=== PATIENT | male | born 1965 | race Caucasian/White ===

== ENCOUNTER 2017-03-25 16:41 | Emergency (ER) | payer SELFPAY ==
[~2017-03-25] VITALS: Ht 172.7 cm; Wt 68.0 kg
[~2017-03-25 16:41] MED LIST: MOTRIN800 MG PO; NATURE'S BLEND F1 MG PO; PHENERGAN25 M1 PO; THIAMINE-100100 MG PO; VIBRAMYCIN100 MG PO; VITAMIN B-1250 MCG PO; ZOFRAN ODT4 MG SL
[2017-03-25 17:07] LABS: BASO # 0.1 10*3/uL (0.0-0.1); BASO % 0.6 % (0.0-1.0); EOS # 0.1 10*3/uL (0.0-0.4); EOS % 1.8 % (1.0-4.0); HEMOGLOBIN 15.2 g/dl (14.0-18.0); LYMPH # 3.8 10*3/uL (1.3-4.4); MEAN CELL VOLUME 90.3 fl (80.0-94.0); MEAN CORPUSCULAR HGB 32.7 pg (27.0-31.0); MEAN CORPUSCULAR HGB CONC 36.2 g/dl (33.0-37.0); MONO # 0.5 10*3/uL (0.1-1.0); MONO % 6.2 % (3.0-9.0); NEUT # 3.4 10*3/uL (2.3-7.9); NEUT % 43.1 % (47.0-73.0); PLATELET COUNT AUTOMATED 215 10*3/uL (130-400); RED BLOOD COUNT 4.65 10*6/uL (4.50-5.90); RED CELL DISTRI WIDTH 12.8 % (0-14.5); WHITE BLOOD COUNT 7.9 10*3/uL (4.8-10.8)
[2017-03-25 17:27] LABS: BUN 9 mg/dl (7-24); CARBON DIOXIDE 25 mmol/L (21-32); CHLORIDE 103 mmol/L (98-107); EST GLOM FILT AFRICAN AMERICAN > 60 ml/min; GLUCOSE 105 mg/dL (65-99); POTASSIUM 3.8 mmol/L (3.5-5.1); SODIUM 140 mmol/L (136-145)
[2017-03-25 17:52] LABS: URINE AMPHETAMINES < 1000 (1000ng/ml); URINE BARBITURATES < 200 (200ng/ml); URINE COCAINE > 300 (300ng/ml)
== END 2017-03-25 18:14 | disposition short-term general hospital (02) ==
LOC: ED 16:41
PROVIDERS: Emergency Medicine
DX: R41.82 Altered mental status, unspecified (principal); F14.10 Cocaine abuse, uncomplicated

== ENCOUNTER 2017-09-30 03:32 | Emergency (ER) | payer OTHER ==
[~2017-09-30] VITALS: Ht 180.3 cm; Wt 62.1 kg
[2017-09-30] MEDS ORDERED: ULTRAM50 MG PO (07:01)
== END 2017-09-30 06:43 | disposition home or self-care (01) ==
LOC: ED 03:32
DX: S02.40DA Maxillary fracture, left side, initial encounter for closed fracture (principal); Y04.0XXA Assault by unarmed brawl or fight, initial encounter; Y93.89 Activity, other specified; Y92.89 Other specified places as the place of occurrence of the external cause; Y99.8 Other external cause status

== ENCOUNTER 2020-07-29 15:33 | Inpatient (IN) | payer OTHER ==
[~2020-07-29] VITALS: Ht 182.9 cm; Wt 77.1 kg
[~2020-07-29 15:33] MED LIST changes: +CEFADROXIL500 M1 PO; +ULTRAM50 MG PO
[2020-07-29 15:39] VITALS: BP 91/59
--- NOTE | 2020-07-29 16:00 | NUR ---
PT WITHDRAWN AT THIS TIME. UNRESPONSIVE TO PAINFUL STIMULI. WILL CONTINUE TO MONITOR.
[2020-07-29 16:07] VITALS: BP 114/77
[2020-07-29 16:09] LABS: BASO # 0.1 10*3/uL (0.0-0.1); BASO % 0.6 % (0.0-1.0); EOS # 0.3 10*3/uL (0.0-0.4); EOS % 3.7 % (1.0-4.0); HEMATOCRIT 45.4 % (42.0-52.0); LYMPH # 4.4 10*3/uL (1.3-4.4); LYMPH % 46.9 % (27.0-41.0); MEAN CELL VOLUME 91.7 fl (80.0-94.0); MEAN CORPUSCULAR HGB 32.1 pg (27.0-31.0); MEAN PLATELET VOLUME 9.1 fl (9.6-12.3); MONO # 0.8 10*3/uL (0.1-1.0); MONO % 8.2 % (3.0-9.0); NEUT # 3.7 10*3/uL (2.3-7.9); NEUT % 40.3 % (47.0-73.0); PLATELET COUNT AUTOMATED 219 10*3/uL (130-400); RED BLOOD COUNT 4.95 10*6/uL (4.50-5.90); RED CELL DISTRI WIDTH 12.6 % (0-14.5); WHITE BLOOD COUNT 9.3 10*3/uL (4.8-10.8)
--- NOTE | 2020-07-29 16:15 | NUR ---
PT PULLING AT SOFT RESTRAINTS. YELLING AT STAFF. WILL CONTINUE TO MONITOR.
[2020-07-29 16:20] LABS: BILIRUBIN Negative (Negative); BLOOD Trace-Lysed (Negative); CLARITY Clear (Clear); COLOR Yellow (Yellow); GLUCOSE Negative (Negative); KETONE Negative (Negative); LEUKO ESTERASE Negative (Negative); NITRITE Negative (Negative); SPECIFIC GRAVITY <= 1.005 (1.001-1.030); UROBILINOGEN 0.2 E.U./dl (0.0-1.0)
--- NOTE | 2020-07-29 16:30 | NUR ---
SECURITY AND VEGETABLE II FARMWORKER AT BEDSIDE. PT REQUESTING TO LEAVE AT THIS TIME. WILL CONTINUE TO MONITOR.
--- NOTE | 2020-07-29 16:34 | NUR ---
PT HAS $150 IN SHIRT POCKET. MONEY COUNTED AND VERIFIED WITH STEFANIE GARCIA RN. THIS RN TAKING MONEY TO NURSE AUTOMATIC PATTERN EDGER TO BE PUT IN LOCK BOX UNTIL DISCHARGE OF PT.
[2020-07-29 16:41] LABS: URINE AMPHETAMINES < 1000 (1000ng/ml); URINE BARBITURATES < 200 (200ng/ml); URINE BENZODIAZEPINES < 200 (200ng/ml); URINE CANNABINOIDS (THC) < 50 (50ng/ml); URINE COCAINE < 300 (300ng/ml); URINE METHADONE < 300 (300ng/ml); URINE OPIATES < 300 (300ng/ml); URINE PHENCYCLIDINE < 25 (25ng/ml)
[2020-07-29 16:43] LABS: WBC 0-2 wbc/hpf (0-5)
--- NOTE | 2020-07-29 16:45 | NUR ---
PT COMBATIVE AT THIS TIME. SWINGING AT STAFF. SOFT RESTRAINTS APPLIED PER MD REQUEST. WILL CONTINUE TO MONITOR.
--- NOTE | 2020-07-29 16:45 | NUR ---
PT DAUGHTER AT BEDSIDE. PT AGGITATED. REQUESTING TO LEAVE. WILL CONTINUE TO MONITOR.
--- NOTE | 2020-07-29 16:52 | NUR ---
MONEY TAKEN TO NURSING SUPERVISORS OFFICE AND PUT IN LOCKER NUMBER 16.
[2020-07-29 16:55] LABS: ALBUMIN 3.9 gm/dl (3.1-4.5); ALKALINE PHOSPHATASE 90 U/L (45-117); BUN 13 mg/dl (7-24); CHLORIDE 107 mmol/L (98-107); CREATININE 1.07 mg/dL (0.70-1.30); POTASSIUM 3.5 mmol/L (3.5-5.1); SGOT/AST 29 IU/L (3-35); SGPT/ALT 31 U/L (12-78); SODIUM 139 mmol/L (136-145); TOTAL PROTEIN 7.3 gm/dL (6.4-8.2)
--- NOTE | 2020-07-29 17:00 | NUR ---
PT DAUGHTER TO NURSES STATION. REQUESTING INFORMATION. INFORMED THAT PT MONEY IN THE LOCKER. PT ON COT. BEDRAILS X2. WILL CONTINUE TO MONITOR.
[2020-07-29 17:02] LABS: TROPONIN I < 0.015 ng/ml (<0.045)
--- NOTE | 2020-07-29 17:15 | NUR ---
PT TALKING CALMLY WITH SECURITY AND JOSR CALENDER FEEDER AT THIS TIME. CT CONTACTED. SAFETY PRECAUTIONS INTACT. WILL CONTINUE TO MONITOR.
--- NOTE | 2020-07-29 17:30 | NUR ---
PT ON COT WITH PUBLIC SPACE ATTENDANT AND SECURITY AT BEDSIDE. PT CALM. BEDRAIL X 2. WILL CONTINUE TO MONITOR.
--- NOTE | 2020-07-29 17:45 | NUR ---
PT UNRESPONSIVE. VSS. SECURITY AND TELLER COORDINATOR STILL AT BEDSIDE.
--- NOTE | 2020-07-29 18:00 | NUR ---
PT YELLING AND COMBATIVE. VSS. WILL CONTINUE TO MONITOR.
--- NOTE | 2020-07-29 18:15 | NUR ---
PT SITTING ON COT CALMLY. PRESCHOOL TEACHER AIDE AND SECURITY STILL AT BEDSIDE. WILL CONTINUE TO MONITOR.
--- NOTE | 2020-07-29 18:30 | NUR ---
PT TO CT SCAN.
[2020-07-29 18:41] VITALS: BP 97/67
--- NOTE | 2020-07-29 18:45 | NUR ---
PT SLEEPING ON COT. O2 SAT DROPPING TO HIGH 80S. NASAL CANULA WITH 2 LITERS OF O2 APPLIED. SAFETY PRECAUTIONS INTACT. SURGICAL ENDOSCOPIST AT BEDSIDE. WILL CONTINUE TO MONITOR.
--- NOTE | 2020-07-29 19:00 | NUR ---
PT SNORING ON COT. VSS. SAFETY PRECAUTION INTACT. WILL CONTINUE TO MONITOR.
--- NOTE | 2020-07-29 19:06 | NUR ---
NURSE TO NURSE REPORT GIVEN TO THIS RN.
[2020-07-29 19:36] VITALS: BP 103/64
--- NOTE | 2020-07-29 20:21 | NUR ---
THIS RN SPOKE WITH PT SIGNIFICANT OTHER AND PROVIDE UPDATE ON PT ADMISSION.
[2020-07-29 21:03] VITALS: BP 104/62
--- NOTE | 2020-07-29 21:10 | NUR ---
PT SIGNIFICANT OTHER PROVIDED WITH PT KEYS, REMAINING BELONGINGS S[facility] TO [facility], CLOTHING,SHOES,WALLET,AND CELL PHONE.
[2020-07-29 21:20] VITALS: BP 128/57
--- NOTE | 2020-07-29 21:20 | NUR ---
PATIENT UNCOOPERTIVE WITH SOON HE CAME TO THE FLOOR I ASKED IF HE COULD ROLL ON HIS BACK HE LAUIGHED SAID NO AND WENT BACK TO SLEEP.
--- NOTE | 2020-07-29 21:20 | NUR ---
A 55, admitted to [facility], under the services of WENDY Bedoya DO with a diagnosis of ETOH ABUSE SYNCOPE. Chief complaint is INTOXICATED AND FELL. Patient arrived via stretcher from ER. Monitor applied. Initial assessment completed. Vital signs taken and recorded. WENDY BEDOYA DO notified of admission to the unit. Orders received. See assessment for past medical history, medications and allergies. Patient and/or family oriented to unit. [facility] visitation policy reviewed. Clothing/patient valuable form completed. PRASANNA CABELLO
--- NOTE | 2020-07-29 21:22 | NUR ---
PT SIGNIFICANT OTHER "HERMINIO", PROVIDED PASSWORD OF "[employer]".
--- NOTE | 2020-07-29 21:28 | NUR ---
THIS RN SPOKE WITH INFORMATION TECHNOLOGY TECHNICIAN HAMLET, WHO CONFIRMS SHE WAS PROVIDED $150 [place] THAT WAS FOUND IN PT BELONGINGS BY RN ARELIS PEREZ.SHE ALSO STATES MONEY WAS PLACED IN LOCKBOX#[address] COPY OF LOCKBOX PAPERWORK TO [facility].
--- NOTE | 2020-07-29 23:50 | NUR ---
PATIENT CURRENTLY SLEEPING AT THIS TIME.
[2020-07-30] VITALS: BP 119/55
--- NOTE | 2020-07-30 01:05 | NUR ---
PATIENT WOKE UP DEMANDING TO LEAVE.CALLED DOCTOR JESSICA WHO CAME TO THE FLOOR AND TAKED TO THE PATIENT.
--- NOTE | 2020-07-30 01:38 | NUR ---
PATIENT LEAVING AMA PATIENT IS ALERT AND ORIENTED AND WANTED TO GO HOME. TRAN OUT AND IV OUT PATIENT IS DRESSED ADN BELONGINGS ALL RETURNED. DOCTORS ARE AWARE.
--- NOTE | 2020-07-30 01:50 | NUR ---
PATIENT TAKEN TO TEDDY HOOKER ON [facility] WHO SAID THEY WOULD BE HERE IN 30 MINS TO TAKE PATINET TO [address] [place] [address]. SECURITY WAS NOTIFIED TO MAKE SURE PATIENT GOT IN TO CAB. PATIENT WAS LEFT WITH REGIONAL INTERMODAL TRUCK DRIVER PAULINE UNTIL CAB ARRIVES.
== END 2020-07-30 01:50 | disposition left against medical advice (07) | DRG 312 ==
LOC: ED 15:33 → ICCU 20:18 → EDHOLD 20:18 → ICCU 20:37
PROVIDERS: Nurse Practitioner Family; ADMIT Emergency Medicine; ATTEND Emergency Medicine
DX: R55 Syncope and collapse (principal); I95.9 Hypotension, unspecified; R45.1 Restlessness and agitation; W19.XXXA Unspecified fall, initial encounter; F10.20 Alcohol dependence, uncomplicated; Z53.29 Procedure and treatment not carried out because of patient's decision for other reasons; Z88.5 Allergy status to narcotic agent; Z88.6 Allergy status to analgesic agent; Y93.89 Activity, other specified; Y92.89 Other specified places as the place of occurrence of the external cause; Y99.8 Other external cause status

== ENCOUNTER 2021-02-07 23:39 | Emergency (ER) | payer OTHER ==
[~2021-02-07] VITALS: Ht 180.3 cm; Wt 85.9 kg
[2021-02-07 23:58] LABS: BASO # 0.1 10*3/uL (0.0-0.1); BASO % 0.7 % (0.0-1.0); EOS # 0.4 10*3/uL (0.0-0.4); EOS % 5.3 % (1.0-4.0); HEMATOCRIT 44.9 % (42.0-52.0); LYMPH # 2.8 10*3/uL (1.3-4.4); LYMPH % 39.5 % (27.0-41.0); MEAN CELL VOLUME 92.4 fl (80.0-94.0); MEAN CORPUSCULAR HGB 32.7 pg (27.0-31.0); MEAN CORPUSCULAR HGB CONC 35.4 g/dl (33.0-37.0); MONO # 0.7 10*3/uL (0.1-1.0); MONO % 9.4 % (3.0-9.0); NEUT # 3.1 10*3/uL (2.3-7.9); NEUT % 44.8 % (47.0-73.0); PLATELET COUNT AUTOMATED 234 10*3/uL (130-400); RED BLOOD COUNT 4.86 10*6/uL (4.50-5.90)
[2021-02-08 00:16] LABS: ALBUMIN 3.4 gm/dl (3.1-4.5); ALKALINE PHOSPHATASE 112 U/L (45-117); BUN 9 mg/dl (7-24); CHLORIDE 107 mmol/L (98-107); CREATININE 1.17 mg/dL (0.70-1.30); POTASSIUM 3.4 mmol/L (3.5-5.1); SGOT/AST 23 IU/L (3-35); SGPT/ALT 26 U/L (12-78); SODIUM 141 mmol/L (136-145)
[2021-02-08 00:21] LABS: TROPONIN I < 0.015 ng/ml (<0.045)
== END 2021-02-08 02:12 | disposition home or self-care (01) ==
LOC: ED 23:39
PROVIDERS: Internal Medicine
DX: T59.91XA Toxic effect of unspecified gases, fumes and vapors, accidental (unintentional), initial encounter (principal); Y92.89 Other specified places as the place of occurrence of the external cause; Z88.6 Allergy status to analgesic agent; Z90.49 Acquired absence of other specified parts of digestive tract; Z98.890 Other specified postprocedural states

== ENCOUNTER 2021-05-30 14:41 | Emergency (ER) | payer OTHER ==
[~2021-05-30] VITALS: Ht 180.3 cm; Wt 78.9 kg
[2021-05-30 16:21] LABS: BASO % 0.6 % (0.0-1.0); EOS # 0.2 10*3/uL (0.0-0.4); EOS % 3.6 % (1.0-4.0); HEMATOCRIT 42.1 % (42.0-52.0); LYMPH # 2.4 10*3/uL (1.3-4.4); LYMPH % 36.1 % (27.0-41.0); MEAN CELL VOLUME 93.1 fl (80.0-94.0); MEAN CORPUSCULAR HGB 33.4 pg (27.0-31.0); MEAN CORPUSCULAR HGB CONC 35.9 g/dl (33.0-37.0); MEAN PLATELET VOLUME 8.9 fl (9.6-12.3); MONO # 0.6 10*3/uL (0.1-1.0); MONO % 8.8 % (3.0-9.0); NEUT # 3.4 10*3/uL (2.3-7.9); NEUT % 50.8 % (47.0-73.0); PLATELET COUNT AUTOMATED 191 10*3/uL (130-400); RED BLOOD COUNT 4.52 10*6/uL (4.50-5.90); RED CELL DISTRI WIDTH 13.1 % (0-14.5); WHITE BLOOD COUNT 6.7 10*3/uL (4.8-10.8)
[2021-05-30 16:35] LABS: ALKALINE PHOSPHATASE 94 U/L (45-117); BUN 10 mg/dl (7-24); CHLORIDE 106 mmol/L (98-107); CREATININE 1.18 mg/dL (0.70-1.30); LIPASE 139 U/L (73-393); POTASSIUM 3.6 mmol/L (3.5-5.1); SGOT/AST 25 IU/L (3-35); SGPT/ALT 27 U/L (12-78); SODIUM 138 mmol/L (136-145); TOTAL PROTEIN 6.5 gm/dL (6.4-8.2)
== END 2021-05-30 20:37 | disposition home or self-care (01) ==
LOC: ED 14:41
PROVIDERS: Family Medicine
DX: R11.2 Nausea with vomiting, unspecified (principal); Z20.822 Contact with and (suspected) exposure to COVID-19; R10.9 Unspecified abdominal pain; Z88.6 Allergy status to analgesic agent

== ENCOUNTER 2021-11-24 22:58 | Emergency (ER) | payer SELFPAY ==
[~2021-11-24] VITALS: Wt 80.0 kg
[2021-11-24 23:15] LABS: BILIRUBIN Negative (Negative); BLOOD Negative (Negative); CLARITY Clear (Clear); COLOR Yellow (Yellow); GLUCOSE Negative (Negative); KETONE Negative (Negative); LEUKO ESTERASE Negative (Negative); NITRITE Negative (Negative); PH 5.5 (4.5-8.0); UROBILINOGEN 0.2 E.U./dl (0.0-1.0)
[2021-11-24 23:23] LABS: URINE AMPHETAMINES < 1000 (1000ng/ml); URINE BARBITURATES < 200 (200ng/ml); URINE BENZODIAZEPINES < 200 (200ng/ml); URINE CANNABINOIDS (THC) < 50 (50ng/ml); URINE COCAINE < 300 (300ng/ml); URINE METHADONE < 300 (300ng/ml); URINE OPIATES < 300 (300ng/ml)
[2021-11-24 23:24] LABS: URINE PHENCYCLIDINE < 25 (25ng/ml)
[2021-11-24 23:51] LABS: BASO % 0.4 % (0.0-1.0); EOS # 0.4 10*3/uL (0.0-0.4); EOS % 6.7 % (1.0-4.0); HEMATOCRIT 40.8 % (42.0-52.0); LYMPH # 2.5 10*3/uL (1.3-4.4); LYMPH % 48.5 % (27.0-41.0); MEAN CELL VOLUME 93.8 fl (80.0-94.0); MEAN CORPUSCULAR HGB 33.6 pg (27.0-31.0); MEAN CORPUSCULAR HGB CONC 35.8 g/dl (33.0-37.0); MEAN PLATELET VOLUME 8.7 fl (9.6-12.3); MONO # 0.4 10*3/uL (0.1-1.0); MONO % 8.2 % (3.0-9.0); NEUT # 1.9 10*3/uL (2.3-7.9); NEUT % 35.8 % (47.0-73.0); PLATELET COUNT AUTOMATED 168 10*3/uL (130-400); RED BLOOD COUNT 4.35 10*6/uL (4.50-5.90); RED CELL DISTRI WIDTH 13.7 % (0-14.5); WHITE BLOOD COUNT 5.2 10*3/uL (4.8-10.8)
[2021-11-24 23:57] LABS: BACTERIA TRACE; EPITHELIAL CELLS 0-2; RBC 0-2 rbc/hpf (0-2)
[2021-11-25 00:02] LABS: INTERNATIONAL NORM RATIO 1.1 (2.0-3.5)
[2021-11-25 00:12] LABS: ALKALINE PHOSPHATASE 95 U/L (45-117); BUN 9 mg/dl (7-24); CHLORIDE 115 mmol/L (98-107); CREATININE 0.89 mg/dL (0.70-1.30); POTASSIUM 2.9 mmol/L (3.5-5.1); SGOT/AST 28 IU/L (3-35); SGPT/ALT 27 U/L (12-78); SODIUM 146 mmol/L (136-145); TOTAL PROTEIN 6.6 gm/dL (6.4-8.2)
== END 2021-11-25 01:04 | disposition short-term general hospital (02) ==
LOC: ED 22:58
PROVIDERS: Emergency Medicine
DX: S09.90XA Unspecified injury of head, initial encounter (principal); I63.9 Cerebral infarction, unspecified; Z88.6 Allergy status to analgesic agent; Z90.49 Acquired absence of other specified parts of digestive tract; W17.89XA Other fall from one level to another, initial encounter; Y93.89 Activity, other specified; Y92.89 Other specified places as the place of occurrence of the external cause; Y99.8 Other external cause status

== ENCOUNTER 2022-11-24 13:18 | Emergency (ER) | payer OTHER ==
[2022-11-24 13:59] LABS: BASO # 0.1 10*3/uL (0.0-0.1); BASO % 0.9 % (0.0-1.0); EOS # 0.6 10*3/uL (0.0-0.4); EOS % 9.1 % (1.0-4.0); HEMATOCRIT 44.6 % (42.0-52.0); LYMPH # 2.1 10*3/uL (1.3-4.4); LYMPH % 33.2 % (27.0-41.0); MEAN CELL VOLUME 94.3 fl (80.0-94.0); MEAN CORPUSCULAR HGB 33.2 pg (27.0-31.0); MEAN CORPUSCULAR HGB CONC 35.2 g/dl (33.0-37.0); MEAN PLATELET VOLUME 8.7 fl (9.6-12.3); MONO # 0.6 10*3/uL (0.1-1.0); NEUT % 46.5 % (47.0-73.0); PLATELET COUNT AUTOMATED 181 10*3/uL (130-400); RED BLOOD COUNT 4.73 10*6/uL (4.50-5.90); RED CELL DISTRI WIDTH 13.2 % (0-14.5); WHITE BLOOD COUNT 6.4 10*3/uL (4.8-10.8)
[2022-11-24 14:16] LABS: ALKALINE PHOSPHATASE 90 U/L (46-116); BUN 8 mg/dl (9-23); CHLORIDE 104 mmol/L (98-107); POTASSIUM 3.9 mmol/L (3.4-5.1); SGPT/ALT 42 U/L (10-49); TOTAL PROTEIN 6.8 gm/dL (6.0-8.0)
[2022-11-24 14:29] LABS: BILIRUBIN Negative (Negative); BLOOD Negative (Negative); CLARITY Clear (Clear); COLOR Yellow (Yellow); GLUCOSE Negative (Negative); KETONE Negative (Negative); LEUKO ESTERASE Negative (Negative); NITRITE Negative (Negative); UROBILINOGEN 0.2 E.U./dl (0.0-1.0)
[2022-11-24 14:39] LABS: BACTERIA TRACE; EPITHELIAL CELLS 0-2; MUCOUS 1+; WBC 0-2 wbc/hpf (0-5)
== END 2022-11-24 18:44 | disposition home or self-care (01) ==
LOC: ED 13:18
PROVIDERS: Internal Medicine
DX: K40.20 Bilateral inguinal hernia, without obstruction or gangrene, not specified as recurrent (principal); R10.9 Unspecified abdominal pain; F10.10 Alcohol abuse, uncomplicated; F32.A Depression, unspecified; I10 Essential (primary) hypertension; K46.9 Unspecified abdominal hernia without obstruction or gangrene; Z88.8 Allergy status to other drugs, medicaments and biological substances; Z90.49 Acquired absence of other specified parts of digestive tract

== ENCOUNTER 2023-12-12 13:42 | Emergency (ER) | payer OTHER ==
[~2023-12-12] VITALS: Ht 180.3 cm; Wt 77.1 kg
[2023-12-12] MEDS ORDERED: Ketorolac Tromethamine 30 MG/ML VIAL IM ONE (14:40)
[2023-12-12] MEDS ORDERED: SILVER SULFADIAZINE 25 GM TUBE T ONE (14:40)
[2023-12-12] MEDS ORDERED: SILVADENE20 GM T (15:11)
[2023-12-12] MEDS ORDERED: NAPROSYN500 MG PO (15:11)
== END 2023-12-12 15:50 | disposition home or self-care (01) ==
LOC: ED 13:42
DX: T23.151A Burn of first degree of right palm, initial encounter (principal); T31.0 Burns involving less than 10% of body surface; F32.A Depression, unspecified; I10 Essential (primary) hypertension; F10.10 Alcohol abuse, uncomplicated; Z88.6 Allergy status to analgesic agent; Z88.8 Allergy status to other drugs, medicaments and biological substances; Z90.49 Acquired absence of other specified parts of digestive tract; Z98.890 Other specified postprocedural states; X08.8XXA Exposure to other specified smoke, fire and flames, initial encounter; Y93.89 Activity, other specified; Y92.89 Other specified places as the place of occurrence of the external cause; Y99.0 Civilian activity done for income or pay

== ENCOUNTER 2023-12-17 11:47 | Emergency (ER) | payer OTHER ==
[~2023-12-17] VITALS: Ht 180.3 cm; Wt 77.1 kg
[~2023-12-17 11:47] MED LIST changes: +NAPROSYN500 MG PO; +SILVADENE20 GM T
[2023-12-17] MEDS ORDERED: Ondansetron Hydrochloride 4 MG TAB SL ONE (12:15)
[2023-12-17] MEDS ORDERED: Ketorolac Tromethamine 60 MG/2 ML VIAL IM ONE (12:20)
[2023-12-17] MEDS ORDERED: Motrin,Rufen800 MG PO (14:07)
== END 2023-12-17 14:11 | disposition home or self-care (01) ==
LOC: ED 11:47
DX: S90.32XA Contusion of left foot, initial encounter (principal); I10 Essential (primary) hypertension; F32.A Depression, unspecified; Z88.6 Allergy status to analgesic agent; Z88.8 Allergy status to other drugs, medicaments and biological substances; Z90.49 Acquired absence of other specified parts of digestive tract; Z98.890 Other specified postprocedural states; F10.10 Alcohol abuse, uncomplicated; W22.8XXA Striking against or struck by other objects, initial encounter; Y93.89 Activity, other specified; Y92.89 Other specified places as the place of occurrence of the external cause; Y99.0 Civilian activity done for income or pay

== ENCOUNTER 2025-08-09 18:53 | Emergency (ER) | payer OTHER ==
[~2025-08-09] VITALS: Ht 180.3 cm; Wt 77.1 kg
[~2025-08-09 18:53] MED LIST changes: +Motrin,Rufen800 MG PO
[2025-08-09] MEDS ORDERED: Bacitracin Zinc 14 GM TUBE T ONE (19:25)
[2025-08-09] MEDS ORDERED: VIBRAMYCIN100 MG PO (19:25)
== END 2025-08-09 19:58 | disposition home or self-care (01) ==
LOC: ED 18:53
DX: S70.361A Insect bite (nonvenomous), right thigh, initial encounter (principal); I10 Essential (primary) hypertension; F32.A Depression, unspecified; Z88.8 Allergy status to other drugs, medicaments and biological substances; Z88.5 Allergy status to narcotic agent; Z90.49 Acquired absence of other specified parts of digestive tract; W57.XXXA Bitten or stung by nonvenomous insect and other nonvenomous arthropods, initial encounter; Y93.89 Activity, other specified; Y92.89 Other specified places as the place of occurrence of the external cause; Y99.8 Other external cause status